=== PATIENT | female | born 1970 | race Caucasian/White ===

== ENCOUNTER 2020-07-26 12:38 | Emergency (ER) | payer BC ==
[2020-07-26 12:47] VITALS: BP 142/81; PULSE 80
[2020-07-26] MEDS ORDERED: Lidocaine 2% with EPINEPHrine 1:100,000 20 ML MDV INJECT ONE (12:53)
--- NOTE | 2020-07-26 13:55 | EDM.PDOC ---
ED HPI GENERAL MEDICAL PROBLEM - General Chief Complaint: Laceration Stated Complaint: laceration to left eyebrow area Time Seen by Provider: 07/26/20 12:43 Source of Information: Reports: Patient History Limitations: Reports: No Limitations - History of Present Illness INITIAL COMMENTS - FREE TEXT/NARRATIVE: left forehead laceration while working on chicken coop left eye brow area Pain Score (Numeric/FACES): 3 - Related Data Allergies Allergy/AdvReac Type Severity Reaction Status Date / Time codeine Allergy Nausea Verified 07/26/20 12:39 erythromycin base Allergy Rash Verified 07/26/20 12:39 Home Meds: Home Meds Gabapentin [Neurontin] 300 mg PO 0800 02/28/15 [History] Gabapentin [Neurontin] 600 mg PO QPM 02/28/15 [History] Sertraline [Zoloft] 50 mg PO 0800 02/28/15 [History] Oxybutynin Chloride [Ditropan Xl] 10 mg PO DAILY 07/26/20 [History] Sertraline [Zoloft] 100 mg PO BEDTIME 07/26/20 [History] Past Medical History Other Gastrointestinal History: gastric bypass ED ROS GENERAL - Review of Systems Review Of Systems: See Below Skin: Reports: Other (laceration left forehead) ED EXAM, SKIN/RASH Exam: See Below Exam Limited By: No Limitations General Appearance: Alert, WD/WN, No Apparent Distress Eye Exam: Bilateral Eye: EOMI, PERRL Ears: Hearing Grossly Normal Nose: Normal Inspection Throat/Mouth: Normal Inspection Head: Other (laceration horizontally above left eyebrow) Neck: Supple Respiratory/Chest: No Respiratory Distress Neurological: Alert, Oriented, Normal Cognition, Normal Gait Psychiatric: Normal Affect, Normal Mood Skin: Warm, Wound/Incision Location, Skin: Other (forehead) ED SKIN PROCEDURES - Laceration/Wound Repair Left Forehead Appearance: Subcutaneous, Linear, Clean Anesthetic Type: Local Local Anesthesia - Lidocaine (Xylocaine): 2% with EPI Local Anesthetic Volume: 3cc Skin Prep: Isopropyl Alcohol (Alcohol) Exploration/Debridement/Repair: Wound Explored, In a Bloodless Field, Explored to Base, No Foreign Material Found Lac/Wound length In cm: 2.5 Suture Size: 5-0 # of Sutures: 5 Suture Type: Nylon, Interrupted Drain Placement: No Sterile Dressing Applied: Nurse Tetanus Status Addressed: Yes Course - Vital Signs Last Recorded V/S: Last Vital Signs Temp 36.8 C 07/26/20 12:42 Pulse 80 07/26/20 12:42 Resp 18 07/26/20 12:42 BP 142/81 H 07/26/20 12:42 Pulse Ox 100 07/26/20 12:42 - Orders/Labs/Meds Meds: Medications Discontinued Medications Generic Name Dose Route Start Last Admin Trade Name Jaja PRN Reason Stop Dose Admin Lidocaine/Epinephrine 20 ml 07/26/20 12:53 07/26/20 13:07 Xylocaine 2% With Epinephrine 1:100,000 INJECT 07/26/20 12:54 20 ml ONETIME ONE Administration - Re-Assessments/Exams Free Text/Narrative Re-Assessment/Exam: 07/26/20 14:00 laceration repaired. Wound care reviewed. Tetanus updated Departure - Departure Time of Disposition: 13:54 Disposition: Home, Self-Care 01 Condition: Good Clinical Impression: Laceration of forehead Qualifiers: Encounter type: initial encounter Qualified Code(s): S01.81XA - Laceration without foreign body of other part of head, initial encounter - Discharge Information *PRESCRIPTION DRUG MONITORING PROGRAM REVIEWED*: Not Applicable *COPY OF PRESCRIPTION DRUG MONITORING REPORT IN PATIENT SAM: Not Applicable Instructions: Sutures, [place], or Adhesive Wound Closure, [id number] Referrals: Elissa Mcdonough NP [Primary Care Provider] - Forms: ED Department Discharge Additional Instructions: Wound care as reviewed. Sutures out in 5 days. Follow up as needed if you have any problems or signs of infection. Sepsis Event Note (ED) - Evaluation Sepsis Screening Result: No Definite Risk - Focused Exam Vital Signs: Vital Signs Temp Pulse Resp BP Pulse Ox 07/26/20 12:42 36.8 C 80 18 142/81 H 100
[2020-07-26] MEDS ORDERED: Diphtheria,Pertussis(Acell),Tetanus Vaccine 0.5 ML Syringe IM ONE (13:56)
[2020-07-26] MEDS ORDERED: Bacitracin Oint 1 GM U/D Packet TOP ONE (13:58)
== END 2020-07-26 14:15 | disposition home or self-care (01) ==
LOC: LL.ED 12:38
DX: S01.81XA Laceration without foreign body of other part of head, initial encounter (principal); Z88.5 Allergy status to narcotic agent; Z88.1 Allergy status to other antibiotic agents; Z79.899 Other long term (current) drug therapy; Z23 Encounter for immunization; W22.8XXA Striking against or struck by other objects, initial encounter
CPT/HCPCS: 12011; 90471; 90715; 99282-25